=== PATIENT | male | born 1940 | race Caucasian/White ===

== ENCOUNTER 2021-03-20 09:51 | Inpatient (IN) ==
[2021-03-20 10:54] LABS: Hematocrit 18.6 % (37.5-50.1); Mean Corpuscular HGB Conc 29.6 g/dL (31.6-35.5); Mean Corpuscular Hemoglobin 31.1 pg (28.0-33.3); Mean Corpuscular Volume 105.1 fL (83.0-100.0); Mean Platelet Volume 9.3 fL (9.4-12.4); Nucleated Red Blood Cells 0.6 /100 WBC (0); Platelet Count 216 K/mcL (140-400); Red Blood Count 1.77 M/mcL (4.19-5.50); Red Cell Distribution Width 19.2 % (11.5-14.5); White Blood Count 8.6 K/mcL (4.3-11.1)
[2021-03-20 10:59] LABS: Hemoglobin 5.5 g/dL (12.9-16.9)
[2021-03-20 11:03] LABS: Prothrombin Time 33.5 Seconds (9.4-12.1)
[2021-03-20 11:05] LABS: Activated Partial Thrombo Time 44.7 Seconds (26.0-36.0)
[2021-03-20 11:11] LABS: Albumin 3.6 g/dL (3.5-5.7); Albumin/Globulin Ratio 1.4 (1.1-2.2); Bilirubin,Total 0.3 mg/dL (0.3-1.0); Globulin 2.5 g/dL (2.4-3.5); Potassium 5.6 mEq/L (3.5-5.1); Total Protein 6.1 g/dL (6.4-8.9); Troponin I 0.03 ng/mL (< 0.04)
[2021-03-20 11:19] LABS: Monocytes # 0.3 K/mcL (0.0-1.3); Neutrophils # 7.2 K/mcL (1.6-8.9); Platelet Estimate Normal (Normal)
[2021-03-20] MEDS ORDERED: SODIUM ZIRCONIUM CYCLOSILICATE 5 GM POWD.PACK PO ONE (11:31)
[2021-03-20] MEDS ORDERED: Pantoprazole 40 MG VIAL IVP ONE (11:55)
[2021-03-20 12:16] LABS: Bacteria,Urine Many per hpf (None-Few); Bilirubin,Urine Negative (Negative); Blood,Urine Small (Negative); Clarity,Urine Ex.Turbid (Clear); Color,Urine Yellow (Yellow); Glucose,Urine (UA) Normal (Normal); Hyaline Casts,Urine Moderate per lpf (None Seen); Ketones,Urine Negative (Negative); Leukocyte Esterase,Urine Large (Negative); Nitrite,Urine Negative (Negative); PH,Urine 6.5 pH Units (5.0-8.0); Protein,Urine 50 mg/dL (Neg-Trace); Specific Gravity,Urine 1.016 (1.010-1.025); Squamous Epithelial Cell,Urine Few per hpf (None-Few); Urobilinogen,Urine Normal (Normal); WBC,Urine TNTC per hpf (0-3)
[2021-03-20] MEDS ORDERED: cefTRIAXone 1,000 MG in Water for inj. (sterile) 10 ML IVP ONE (12:25)
[2021-03-20] MEDS ORDERED: Naloxone 0.4 MG/ML INJ IVP PRN (12:47)
[2021-03-20] MEDS ORDERED: 0.9 % Sodium Chloride 250 ML ONE ×3 (13:11→22:39)
[2021-03-20] MEDS ORDERED: Acetaminophen 325 MG TABLET PO PRN (15:15)
[2021-03-20 16:58] LABS: Hematocrit 21.7 % (37.5-50.1); Hemoglobin 6.7 g/dL (12.9-16.9)
[2021-03-20 17:37] LABS: Estimated Average Glucose 100 mg/dl; Hemoglobin A1C 5.1 %
[2021-03-20 17:41] LABS: Sodium, Urine 89.3 mEq/L
[2021-03-21] MEDS: 0.9 % Sodium Chloride 1,000 ML IVC SCH ×2 (02:18→13:16)
[2021-03-21 05:33] LABS: Hematocrit 27.3 % (37.5-50.1); Mean Corpuscular HGB Conc 31.5 g/dL (31.6-35.5); Mean Corpuscular Hemoglobin 30.3 pg (28.0-33.3); Platelet Count 181 K/mcL (140-400); Red Blood Count 2.84 M/mcL (4.19-5.50); Red Cell Distribution Width 18.4 % (11.5-14.5)
[2021-03-21 05:34] LABS: Hematocrit 26.7 % (37.5-50.1); Hemoglobin 8.7 g/dL (12.9-16.9)
[2021-03-21 05:36] LABS: Hemoglobin 8.6 g/dL (12.9-16.9); Mean Corpuscular Volume 96.1 fL (83.0-100.0)
[2021-03-21 05:42] LABS: INR 3.2; Prothrombin Time 35.3 Seconds (9.4-12.1)
[2021-03-21 05:44] LABS: Activated Partial Thrombo Time 42.2 Seconds (26.0-36.0)
[2021-03-21] MEDS: Levothyroxine 25 MCG TABLET PO SCH (05:58)
[2021-03-21] MEDS: Metoprolol XL (24 HR) Succ 25 MG TAB.ER.24H PO SCH (05:58)
[2021-03-21 06:49] LABS: Calcium 8.2 mg/dL (8.6-10.3); Potassium 5.5 mEq/L (3.5-5.1)
[2021-03-21] MEDS: Pantoprazole 40 MG VIAL IVP SCH (08:32)
[2021-03-21] MEDS: cefTRIAXone 1,000 MG in Water for inj. (sterile) 10 ML IVP SCH (12:04)
[2021-03-21] MEDS: Saline Nasal Spray 44 ML BOTTLE NS SCH ×3 (15:33→23:55)
[2021-03-21 23:38] LABS: Calcium 8.6 mg/dL (8.6-10.3); Potassium 5.4 mEq/L (3.5-5.1)
[2021-03-22] MEDS: Saline Nasal Spray 44 ML BOTTLE NS SCH ×5 (03:20→21:01)
[2021-03-22] MEDS: Levothyroxine 25 MCG TABLET PO SCH (06:40)
[2021-03-22] MEDS: Metoprolol XL (24 HR) Succ 25 MG TAB.ER.24H PO SCH (06:40)
[2021-03-22 08:52] LABS: Hematocrit 27.4 % (37.5-50.1); Hemoglobin 8.7 g/dL (12.9-16.9); Mean Corpuscular HGB Conc 31.8 g/dL (31.6-35.5); Mean Corpuscular Hemoglobin 31.5 pg (28.0-33.3); Mean Corpuscular Volume 99.3 fL (83.0-100.0); Mean Platelet Volume 9.5 fL (9.4-12.4); Platelet Count 206 K/mcL (140-400); Red Blood Count 2.76 M/mcL (4.19-5.50); Red Cell Distribution Width 18.7 % (11.5-14.5); White Blood Count 6.7 K/mcL (4.3-11.1)
[2021-03-22] MEDS: Pantoprazole 40 MG VIAL IVP SCH (08:54)
[2021-03-22 10:11] LABS: INR 2.2; Prothrombin Time 24.7 Seconds (9.4-12.1)
[2021-03-22 10:14] LABS: Calcium 8.5 mg/dL (8.6-10.3); Potassium 4.9 mEq/L (3.5-5.1)
[2021-03-22] MEDS: cefTRIAXone 1,000 MG in Water for inj. (sterile) 10 ML IVP SCH (11:43)
[2021-03-22] MEDS ORDERED: *HR* Warfarin 2.5 MG TABLET PO SCH (18:15)
[2021-03-22] MEDS ORDERED: Warfarin perPT PO SCH (18:45)
[2021-03-22] MEDS ORDERED: *HR* Warfarin 5 MG TABLET PO ONE (19:00)
[2021-03-23] MEDS: Saline Nasal Spray 44 ML BOTTLE NS SCH ×2 (01:01→03:29)
[2021-03-23 03:25] VITALS: O2SAT 96
[2021-03-23] MEDS: Levothyroxine 25 MCG TABLET PO SCH (05:36)
[2021-03-23] MEDS: Metoprolol XL (24 HR) Succ 25 MG TAB.ER.24H PO SCH (05:36)
[2021-03-23 07:42] LABS: Hematocrit 27.8 % (37.5-50.1); Hemoglobin 8.7 g/dL (12.9-16.9); Mean Corpuscular HGB Conc 31.3 g/dL (31.6-35.5); Mean Corpuscular Hemoglobin 30.7 pg (28.0-33.3); Mean Corpuscular Volume 98.2 fL (83.0-100.0); Mean Platelet Volume 8.8 fL (9.4-12.4); Platelet Count 170 K/mcL (140-400); Red Blood Count 2.83 M/mcL (4.19-5.50); Red Cell Distribution Width 17.9 % (11.5-14.5); White Blood Count 5.2 K/mcL (4.3-11.1)
[2021-03-23 07:44] VITALS: BP 137/66; PULSE 70; TEMP 98.6
[2021-03-23 07:57] LABS: INR 1.7; Prothrombin Time 18.7 Seconds (9.4-12.1)
[2021-03-23 08:02] LABS: Calcium 8.6 mg/dL (8.6-10.3); Potassium 4.7 mEq/L (3.5-5.1)
[2021-03-23] MEDS: Pantoprazole 40 MG VIAL IVP SCH (09:41)
[2021-03-23] MEDS ORDERED: *HR* Warfarin 5 MG TABLET PO ONE (18:00)
[2021-03-23] MEDS ORDERED: *HR* Warfarin 2.5 MG TABLET PO SCH (18:01)
== END 2021-03-23 10:55 | disposition home or self-care (01) | DRG 812 ==
LOC: 3NENU 09:51 → EMEROOARM 09:51 → 3NENU 14:56 → SUATTDRO 19:49
PROVIDERS: ADMIT Internal Medicine; ATTEND Internal Medicine